=== PATIENT | male | born 2000 | race Two or more races ===

== ENCOUNTER 2020-12-31 14:17 | Emergency (ER) | payer MEDICAID ==
[~2020-12-31] VITALS: Ht 180.3 cm; Wt 104.5 kg
[~2020-12-31 14:17] MED LIST: NOCURR
[2020-12-31 14:19] VITALS: BP 121/60
[2020-12-31] MEDS ORDERED: IBUPROFEN 800 MG TABLET PO ONE (14:30)
== END 2020-12-31 15:53 | disposition home or self-care (01) ==
LOC: EMS 14:19
DX: S63.613A Unspecified sprain of left middle finger, initial encounter (principal); W17.89XA Other fall from one level to another, initial encounter; Y93.89 Activity, other specified; Y92.89 Other specified places as the place of occurrence of the external cause; Y99.8 Other external cause status
CPT/HCPCS: 99283